=== PATIENT | male | born 1960 | race Caucasian/White ===

== ENCOUNTER → 2018-10-11 | Day surgery (SDC) | payer OTHER ==
[~2018-10-11] MED LIST: ASPIR 8181 MG PO; ATORVASTATIN CA10 MG PO; BUPIVACAINE HCL 0.5% 10ML MPF VIAL INJ ONE; CEFAZOLIN SOD 2 GM/D5W 50ML 50 ML IV ONE; CLOPIDOGREL75 MG PO; DEXAMETHASONE SOD PHOS INJ 4 MG/ML VIAL ONE; FENTANYL CITRATE/PF 100MCG/2 ML INJ ONE; KETOROLAC TROMETHAMINE 30 MG/ML VIAL ONE; LIDOCAINE HCL 2% LOCAL INJ 5 ML SDV VIAL INJ ONE; LISINOPRIL10 MG PO; METOPROLOL TART25 MG PO; MIDAZOLAM HCL 2 MG/2 ML VIAL ONE; MUPIROCIN 2% OINT 22 GM TUBE ONE; ONDANSETRON HCL INJ 2 MG/ML VIAL ONE; PROPOFOL IV EMULSION 10 MG/ML 20 ML VIAL ONE; SEVOFLURANE INHAL SOLN 250 ML PEN BTL ONE
[2018-10-11 09:41] LABS: BASOPHILS % 0.6 % (0.0-1.0); EOSINOPHILS # (AUTO) 0.2 (0.0-0.4); EOSINOPHILS % 2.3 % (0.0-6.0); HEMATOCRIT 42.4 % (38.2-49.6); HEMOGLOBIN 14.1 g/dL (14.0-18.0); LYMPHOCYTES # (AUTO) 1.5 (1.0-3.2); LYMPHOCYTES % 21.4 % (18.0-39.1); MEAN CORPUSCULAR HEMOGLOBIN 31.1 pg (28-32); MEAN CORPUSCULAR HGB CONC 33.3 g/dL (31-35); MEAN CORPUSCULAR VOLUME 93.6 fL (81-99); MONOCYTES # (AUTO) 0.6 (0.2-0.8); MONOCYTES % 7.9 % (4.4-11.3); NEUTROPHILS # (AUTO) 4.7 (2.1-6.9); NEUTROPHILS % 67.5 % (38.7-80.0); PLATELET COUNT 274 x10e3/uL (140-360); RED BLOOD COUNT 4.53 x10e6/uL (4.3-5.7); RED CELL DISTRIBUTION WIDTH 13.2 % (11.7-14.4)
[2018-10-11 11:35] VITALS: BP 117/66
--- NOTE | 2018-10-11 13:45 | Operative Report ---
DATE OF PROCEDURE: October 11, 2018 PREOPERATIVE DIAGNOSIS: Foreign body, right foot, deep with abscess cellulitis. POSTOPERATIVE DIAGNOSIS: Foreign body, right foot, deep with abscess cellulitis. TITLE OF OPERATION: Removal of foreign body, deep, with incision and drainage of deep wound abscess, right foot. PROCEDURE IN DETAIL: The patient was taken to the operating room in a mildly sedated state and placed upon the operating table in the supine position. Following administration of general anesthetic, the right lower extremity was elevated to 60 degrees to exsanguinate before inflating the pneumatic thigh tourniquet to 350 mmHg to create hemostasis. The right lower extremity was placed upon the operating table prior to performing the following procedure: Procedure #1: Removal of foreign body, deep right foot. The area was irrigated with copious amounts of sterile saline solution. A linear incision was made overlying the portal of entry and previous dissection portal from the office. Radiographs were taken, and fluoroscopy was done. Other than a faint shadowing immediately underneath the incision site, no foreign body was identified. As we probed and irrigated, there was a small area that looked like a possible bone shard that was resected. This was sent to pathology along with some fat and remaining soft tissues, subcutaneous tissue, etc. The area was irrigated with copious amounts of sterile saline solution. Further exploration both dorsally, plantarly, anteriorly, posteriorly, medially and laterally showed no particular toothpick or foreign body. The area was then blocked with 0.5 Marcaine and Decadron [place]. A transverse incision as well as a secondary incision that was actually transverse across the heel was performed that allowed for further debridement of all skin in that area. This area was noted be void of any superficial or deep mass or foreign body. Serosanguineous fluid was drained, and the one small bone shard that was identified was noted. Further fluoroscopy showed no further foreign object within the wound or the foot or the surrounding tissues. After copious irrigation, then the area was closed with 4-0 nylon in the transverse incision. The longitudinal incision was packed open. The necrotic abscess had been incised and drained. No other suspicious tissues or material was found. The appropriate mildly compressive dressings were applied. The wound was packed open with iodoform in the central aspect. The patient was allowed to be transported from the operatory to the PACU. He will remain nonweightbearing and return to see me in the office on Sunday. Job#: [id number]
== END | disposition home or self-care (01) ==
LOC: OR 07:56
PROVIDERS: ATTEND Podiatrist Foot Surgery
DX: M79.5 Residual foreign body in soft tissue (principal); L02.611 Cutaneous abscess of right foot; L03.115 Cellulitis of right lower limb; I10 Essential (primary) hypertension; I25.10 Atherosclerotic heart disease of native coronary artery without angina pectoris; E66.9 Obesity, unspecified; Z79.02 Long term (current) use of antithrombotics/antiplatelets; Z79.82 Long term (current) use of aspirin
CPT/HCPCS: 28193; 36415; 76000; 85025; 88302; 93005; J0690; J1100; J1885; J2001; J2250; J2405; J2704; 88304